=== PATIENT | female | born 1965 | race Caucasian/White ===

== ENCOUNTER → 2016-10-21 | Day surgery (SDC) | payer OTHER ==
[2016-10-21 09:10] VITALS: BP 127/60; PULSE 53; RESP 18; TEMP 97.4; O2SAT 100
== END | disposition home or self-care (01) ==
LOC: SURG 07:26
PROVIDERS: ATTEND Surgery
DX: Z12.11 Encounter for screening for malignant neoplasm of colon (principal); Z80.0 Family history of malignant neoplasm of digestive organs; K52.9 Noninfective gastroenteritis and colitis, unspecified; K62.5 Hemorrhage of anus and rectum; K59.00 Constipation, unspecified; K64.4 Residual hemorrhoidal skin tags; K64.8 Other hemorrhoids
CPT/HCPCS: J2001; J2405; J2704

== ENCOUNTER 2018-03-22 13:57 | Day surgery (SDC) | payer OTHER ==
[2018-03-22 14:27] VITALS: TEMP 98.6
[2018-03-22] MEDS ORDERED: SODIUM CHLORIDE 0.9% FLUSH 10 ML SOL IV ONE (14:28)
[2018-03-22] MEDS ORDERED: BUPIVACAINE HCL 0.25% MPF 30 ML SOL INFIL ONE (14:59)
[2018-03-22] MEDS ORDERED: DEXAMETHASONE SOD PHOS PF 10 MG/ML SOL IJ ONE (14:59)
[2018-03-22] MEDS ORDERED: FENTANYL 100MCG/2ML SOL ONE (15:04)
[2018-03-22] MEDS ORDERED: MIDAZOLAM 2 MG/2 ML SOL ONE (15:04)
[2018-03-22 15:22] VITALS: RESP 16; O2SAT 98
[2018-03-22 15:30] VITALS: BP 123/67; PULSE 68
== END 2018-03-22 16:00 | disposition home or self-care (01) ==
LOC: SURG 13:57
PROVIDERS: ATTEND Nurse Anesthetist, Certified Registered
DX: M54.12 Radiculopathy, cervical region (principal)
CPT/HCPCS: J2250; J3010; J1100

== ENCOUNTER 2018-05-17 12:51 | Day surgery (SDC) | payer OTHER ==
[2018-05-17] MEDS ORDERED: MIDAZOLAM 2 MG/2 ML SOL ONE (13:28)
[2018-05-17] MEDS ORDERED: FENTANYL 100MCG/2ML SOL ONE (13:29)
[2018-05-17] MEDS ORDERED: SODIUM CHLORIDE 0.9% FLUSH 10 ML SOL IV ONE (13:29)
[2018-05-17] MEDS ORDERED: LIDOCAINE HCL 2% MPF 10 ML SOL ONE (13:37)
[2018-05-17 13:59] VITALS: PULSE 60
[2018-05-17 14:32] VITALS: BP 144/74; RESP 14; TEMP 97.4; O2SAT 96
== END 2018-05-17 14:22 | disposition home or self-care (01) ==
LOC: SURG 12:51
PROVIDERS: ATTEND Nurse Anesthetist, Certified Registered
DX: M54.2 Cervicalgia (principal)
CPT/HCPCS: J2250; J3010